=== PATIENT | female | born 1995 | race Caucasian/White ===

== ENCOUNTER → 2020-02-06 | Outpatient (CLI) | payer OTHER ==
[~2020-02-06] MED LIST: Cleocin HCl150 MG PO; Doxycycline Hyc50 MG PO; IBUP800 PO; MULVITMINE PO; PERIDEX15 ML PO; Percocet 5-3251 EACH PO; Zofran Odt4 MG SL
== END | disposition home or self-care (01) ==
LOC: LAB 15:26 → LAB SHORT 15:26
PROVIDERS: Obstetrics & Gynecology
DX: Z01.419 Encounter for gynecological examination (general) (routine) without abnormal findings (principal)
CPT/HCPCS: G0123

== ENCOUNTER → 2020-05-29 | Outpatient (CLI) | payer OTHER ==
[2020-05-31 15:13] LABS: CORONAVIRUS (COVID19) CSH-NRL Negative (Negative)
== END | disposition home or self-care (01) ==
LOC: LAB SHORT 17:51
PROVIDERS: Family Medicine
DX: R52 Pain, unspecified (principal); Z20.828 Contact with and (suspected) exposure to other viral communicable diseases
CPT/HCPCS: U0003

== ENCOUNTER 2020-12-11 19:53 | Inpatient (IN) | payer OTHER ==
[~2020-12-11] VITALS: Ht 157.5 cm; Wt 82.7 kg
--- NOTE | 2020-12-11 20:00 | NUR ---
PT ARRIVES TO [facility] FOR 17 WEEK DEMISE CONFIRMED BY U/S IN OFFICE. PT REQUESTS WE DO ANOTHER HERE BEFORE STARTING ANYTHING. JULIANNA SAENZ CALLED , U/S ORDERED. PARENTS TOOK PICTURE OF SCREEN OF OUTLINE OF BABY YUAN. U/S CONFIRMED LACK OF CARDIC ACTIVITY. PARENTS LEFT FOR A FEW MINUTES TO TALK, THEN LET RN KNOW THEY WERE READY TO PROCEED WITH INDUCTION. PLAN OF CARE DISCUSSED AND AGREED UPON.
[2020-12-11] MEDS ORDERED: LAMO25 PO (21:13)
--- NOTE | 2020-12-11 21:15 | NUR ---
PT REPORTS DIAGNOSIS OF BIPOLAR DISPORDER, CONROLLED WELL WITH MEDICATION FOR THE LAST 18 WEEKS.
[2020-12-11 21:59] LABS: SARS-Cov-2 (COVID-19) PCR, MMC NEGATIVE (NEGATIVE)
--- NOTE | 2020-12-11 22:24 | NUR ---
VE DONE, CERVIX IS SOFT/CLOSED ANTERIOR.CYTOTEC 200MG PER VAGINA.
[2020-12-11 22:33] LABS: BASOPHILS ABSOLUTE AUTO 0.03 K/mm3 (0.00-0.23); BASOPHILS PERCENT AUTO 0 % (0-2); EOSINOPHILS ABSOLUTE AUTO 0.05 K/mm3 (0.00-0.68); EOSINOPHILS PERCENT AUTO 1 % (0-6); Hematocrit 38.6 % (33.0-51.0); Hemoglobin 13.1 g/dL (11.5-16.0); IMMATURE GRAN ABSOLUTE AUTO 0.03 K/mm3 (0.00-0.10); IMMATURE GRAN PERCENT AUTO 0 % (0-1); LYMPHOCYTES ABSOLUTE AUTO 2.24 K/mm3 (0.84-5.20); LYMPHOCYTES PERCENT AUTO 22 % (21-46); MONOCYTES ABSOLUTE AUTO 0.48 K/mm3 (0.16-1.47); MONOCYTES PERCENT AUTO 5 % (4-13); Mean Corpuscular HGB Conc 33.9 g/dL (31.5-36.5); Mean Corpuscular Volume 89 fL (80-100); Mean Platelet Volume 9.9 fL (9.1-12.4); NEUTROPHILS PERCENT AUTO 73 % (41-73); Platelet Count 322 K/mm3 (150-400); RDW Coefficient Variation 12.6 % (11.7-14.2); RDW Standard Deviation 41.1 fL (35.1-46.3); Red Blood Cell Count 4.36 M/mm3 (3.80-5.20); White Blood Cell Count 10.43 K/mm3 (4.00-11.30)
--- NOTE | 2020-12-11 22:41 | NUR ---
REPORT TO LAURITA PATE. PLAN CREMATION FOR BABY BOY "YUAN." PT HAS A 9 YO SON AND A 3 Y.O DAUGHTER. DISCUSSED INCLUDING THEM INTO CONVERSATIONS ABOUT LOSS. WILL WORK ON [employer]. THIS IS THE SONS SECOND LOSS OF A BROTHER. PARENTS ARE APPROPRIATE WITH QUESTIONS. DISCUSSED SPIRITUAL CARE, MIGHT HAVE GRANDMOTHER WHO THEM COME IN AND BLESS YUAN AFTER HE IS BORN. DISCUSSED CUDDLE COT AND THAT THIS IS THEIR JOURNEY AND WE WILL DO WHATEVER WE CAN TO MAKE THE MOST OF THE TIME AND MEMORIES WE CAN FOR THEM.
--- NOTE | 2020-12-12 03:40 | NUR ---
SVE done at 0220. cervix is still closed, soft and anterior. 2nd dose of cytotec 200mcg placed vaginally. Rn encouraged Pt to get some rest if possible and call RN for any changes or concerns.
--- NOTE | 2020-12-12 07:56 | NUR ---
PATIENT STATES INCREASE PAIN TO 8/10, IN TUB NOW DENIES WANTING AN EPIDURAL AY THIS TIME, COMFORT MEASURES OFFERED, BEREAVEMENT SUPPORT OFFERED, PATIENT APPROPRIATE AND ASKING QUESTIONS, C/O CRAMPING, ABD SOFT
--- NOTE | 2020-12-12 08:21 | NUR ---
FEELING PRESSURE, VE DONE BULGY BAG, DR VALLES CALLED FOR UPDATE
--- NOTE | 2020-12-12 08:33 | NUR ---
attempted to call twice to Dr bains cell phone and left message at the office to come for delivery, unable to leave voicemail it was full
--- NOTE | 2020-12-12 11:26 | NUR ---
PATIENT UP VOIDED IN SHOWER FUNDUS FIRM, SCANT BLEEDING, BEREAVEMENT SUPPORT GIVEN
--- NOTE | 2020-12-12 18:41 | NUR ---
ELIZABETH CALLED WILL COME GET BABY TONIGHT OR IN THE AM
== END 2020-12-12 18:30 | disposition home or self-care (01) | DRG 807 ==
LOC: OBS 19:53 → BC 20:11
PROVIDERS: ADMIT Obstetrics & Gynecology
PROC: 10E0XZZ Delivery of Products of Conception, External Approach (ICD-10-PCS; principal; 2020-12-12)
PROC: 3E0P7VZ Introduction of Hormone into Female Reproductive, Via Natural or Artificial Opening (ICD-10-PCS; 2020-12-12)
DX: O02.89 Other abnormal products of conception (principal); Z37.1 Single stillbirth; Z3A.17 17 weeks gestation of pregnancy; Z20.822 Contact with and (suspected) exposure to COVID-19; Z87.891 Personal history of nicotine dependence; Z90.49 Acquired absence of other specified parts of digestive tract; Z79.899 Other long term (current) drug therapy
CPT/HCPCS: 36415; 76815; 85025; 86850; 86900; 86901; A9270; J1885; J3010; U0004

== ENCOUNTER → 2021-03-05 | Outpatient (CLI) | payer OTHER ==
[~2021-03-05] MED LIST changes: +LAMO25 PO
[2021-03-07 22:06] LABS: CHLAMYDIA TRACHOMATIS, NAA Negative (Negative)
== END ==
LOC: LAB SHORT 17:31 → LAB 17:31
PROVIDERS: Obstetrics & Gynecology
DX: Z34.81 Encounter for supervision of other normal pregnancy, first trimester (principal)
CPT/HCPCS: 87491; 87591

== ENCOUNTER 2021-05-20 19:00 | Inpatient (IN) | payer OTHER ==
[~2021-05-20] VITALS: Ht 157.5 cm; Wt 80.0 kg
[2021-05-20 20:34] LABS: BASOPHILS ABSOLUTE AUTO 0.02 K/mm3 (0.00-0.23); BASOPHILS PERCENT AUTO 0 % (0-2); EOSINOPHILS ABSOLUTE AUTO 0.03 K/mm3 (0.00-0.68); EOSINOPHILS PERCENT AUTO 0 % (0-6); Hematocrit 33.7 % (33.0-51.0); Hemoglobin 11.8 g/dL (11.5-16.0); IMMATURE GRAN ABSOLUTE AUTO 0.01 K/mm3 (0.00-0.10); IMMATURE GRAN PERCENT AUTO 0 % (0-1); LYMPHOCYTES ABSOLUTE AUTO 2.11 K/mm3 (0.84-5.20); LYMPHOCYTES PERCENT AUTO 31 % (21-46); MONOCYTES ABSOLUTE AUTO 0.44 K/mm3 (0.16-1.47); MONOCYTES PERCENT AUTO 7 % (4-13); Mean Corpuscular HGB 30.2 pg (26.0-34.0); Mean Corpuscular Volume 86 fL (80-100); Mean Platelet Volume 10.1 fL (9.1-12.4); NEUTROPHILS ABSOLUTE AUTO 4.14 K/mm3 (1.96-9.15); NEUTROPHILS PERCENT AUTO 61 % (41-73); Platelet Count 293 K/mm3 (150-400); RDW Coefficient Variation 12.7 % (11.7-14.2); RDW Standard Deviation 39.5 fL (35.1-46.3); Red Blood Cell Count 3.91 M/mm3 (3.80-5.20); White Blood Cell Count 6.75 K/mm3 (4.00-11.30)
--- NOTE | 2021-05-20 20:56 | NUR ---
NO CURRENT SI. PAST HAS DISTANT HX OF SI. MAY DC PRECAUTIONS FOR THIS ADMISSION PER PROVIDER.
[2021-05-20 21:12] LABS: SARS-Cov-2 (COVID-19) PCR, MMC NEGATIVE (NEGATIVE)
--- NOTE | 2021-05-21 06:20 | NUR ---
DR VALLES NOTIFIED OF QBL TOTAL OF 961. SHE WILL GIVE 600MG CYTOTEC HI AND LR BOLUS ORDERED.
--- NOTE | 2021-05-21 07:20 | NUR ---
DR VALLES NOTIFIED OF TOTAL QBL 1409. ORDER TO TRANSFUSE 1 UNIT RECEIVED AND OR NOTIFIED OF POSSIBLE NEED FOR D&C.
[2021-05-21 07:59] LABS: BASOPHILS ABSOLUTE AUTO 0.04 K/mm3 (0.00-0.23); BASOPHILS PERCENT AUTO 1 % (0-2); EOSINOPHILS ABSOLUTE AUTO 0.03 K/mm3 (0.00-0.68); EOSINOPHILS PERCENT AUTO 0 % (0-6); Hematocrit 30.3 % (33.0-51.0); Hemoglobin 10.4 g/dL (11.5-16.0); IMMATURE GRAN ABSOLUTE AUTO 0.02 K/mm3 (0.00-0.10); IMMATURE GRAN PERCENT AUTO 0 % (0-1); LYMPHOCYTES ABSOLUTE AUTO 2.27 K/mm3 (0.84-5.20); LYMPHOCYTES PERCENT AUTO 27 % (21-46); MONOCYTES ABSOLUTE AUTO 0.52 K/mm3 (0.16-1.47); MONOCYTES PERCENT AUTO 6 % (4-13); Mean Corpuscular HGB 30.1 pg (26.0-34.0); Mean Corpuscular HGB Conc 34.3 g/dL (31.5-36.5); Mean Corpuscular Volume 88 fL (80-100); Mean Platelet Volume 9.9 fL (9.1-12.4); NEUTROPHILS ABSOLUTE AUTO 5.46 K/mm3 (1.96-9.15); NEUTROPHILS PERCENT AUTO 66 % (41-73); Platelet Count 269 K/mm3 (150-400); RDW Coefficient Variation 12.8 % (11.7-14.2); RDW Standard Deviation 40.5 fL (35.1-46.3); Red Blood Cell Count 3.46 M/mm3 (3.80-5.20); White Blood Cell Count 8.34 K/mm3 (4.00-11.30)
--- NOTE | 2021-05-21 09:45 | NUR ---
0801- 617 g pad weighed that included placenta fragments, provider aware and placenta sent to pathology per orders bleeding much more stable after placenta delivered, per dr quintana still some fragments that have not been delivered. qbl at this time as a whole is 2,025. 0855-71 gram pad weighed since last pad. 2,096 qbl at this time 0938- 2,117 qbl as whole at this time. pt states she is feeling much better after 1st unit of blood, still very pale and feels very tired. Dr Quintana aware of Bp 84/57. States its her normal. 2nd bag of LR running at this time, lab here at this time to redraw cbc, based on those results, we may transfuse a 2nd unit.
[2021-05-21 10:05] LABS: BASOPHILS ABSOLUTE AUTO 0.03 K/mm3 (0.00-0.23); BASOPHILS PERCENT AUTO 0 % (0-2); EOSINOPHILS ABSOLUTE AUTO 0.02 K/mm3 (0.00-0.68); EOSINOPHILS PERCENT AUTO 0 % (0-6); Hematocrit 31.3 % (33.0-51.0); Hemoglobin 10.8 g/dL (11.5-16.0); IMMATURE GRAN ABSOLUTE AUTO 0.02 K/mm3 (0.00-0.10); IMMATURE GRAN PERCENT AUTO 0 % (0-1); LYMPHOCYTES ABSOLUTE AUTO 1.76 K/mm3 (0.84-5.20); LYMPHOCYTES PERCENT AUTO 21 % (21-46); MONOCYTES ABSOLUTE AUTO 0.48 K/mm3 (0.16-1.47); MONOCYTES PERCENT AUTO 6 % (4-13); Mean Corpuscular HGB 30.3 pg (26.0-34.0); Mean Corpuscular HGB Conc 34.5 g/dL (31.5-36.5); Mean Corpuscular Volume 88 fL (80-100); Mean Platelet Volume 9.8 fL (9.1-12.4); NEUTROPHILS ABSOLUTE AUTO 6.25 K/mm3 (1.96-9.15); NEUTROPHILS PERCENT AUTO 73 % (41-73); Platelet Count 256 K/mm3 (150-400); RDW Coefficient Variation 13.1 % (11.7-14.2); Red Blood Cell Count 3.56 M/mm3 (3.80-5.20); White Blood Cell Count 8.56 K/mm3 (4.00-11.30)
--- NOTE | 2021-05-21 10:13 | NUR ---
dr bains updated of repeat lab results, orders to not transfuse 2nd unit at this time, she is going to go back in room to see if she can get remaining fragments out of placenta.
--- NOTE | 2021-05-21 12:39 | NUR ---
pt sitting upright in bed with Leonardo. Memory box given, tolerating po fluids and food. states shes feeling better- still appears very pale
[2021-05-21 13:01] LABS: BASOPHILS ABSOLUTE AUTO 0.04 K/mm3 (0.00-0.23); BASOPHILS PERCENT AUTO 1 % (0-2); EOSINOPHILS ABSOLUTE AUTO 0.02 K/mm3 (0.00-0.68); EOSINOPHILS PERCENT AUTO 0 % (0-6); Hemoglobin 10.6 g/dL (11.5-16.0); IMMATURE GRAN ABSOLUTE AUTO 0.02 K/mm3 (0.00-0.10); IMMATURE GRAN PERCENT AUTO 0 % (0-1); LYMPHOCYTES PERCENT AUTO 29 % (21-46); MONOCYTES ABSOLUTE AUTO 0.43 K/mm3 (0.16-1.47); MONOCYTES PERCENT AUTO 6 % (4-13); Mean Corpuscular HGB 30.2 pg (26.0-34.0); Mean Corpuscular HGB Conc 34.2 g/dL (31.5-36.5); Mean Corpuscular Volume 88 fL (80-100); NEUTROPHILS ABSOLUTE AUTO 5.03 K/mm3 (1.96-9.15); NEUTROPHILS PERCENT AUTO 64 % (41-73); Platelet Count 273 K/mm3 (150-400); RDW Standard Deviation 42.1 fL (35.1-46.3); Red Blood Cell Count 3.51 M/mm3 (3.80-5.20); White Blood Cell Count 7.84 K/mm3 (4.00-11.30)
[2021-05-21] MEDS ORDERED: PRENATAL TABLE1 EAC2 (13:50)
[2021-05-21] MEDS ORDERED: IBUP800 PO (13:50)
[2021-05-21] MEDS ORDERED: ACET500 PO (13:50)
--- NOTE | 2021-05-21 15:20 | NUR ---
Patient given emphasized discharge instructions regarding bleeding, light headedness, dizziness, fainting, etc. pt verbalizes understanding and will monitor herself very closely. bleeding check prior to dc after her shower and she voided and there was only a quarter size spot on her large white pad. fundus firm and no clots expressed with massage. VSS.\ Pt declines PPFU here at [facility] at this time, but she is aware that she needs to see Dr bains in 2 weeks for follow up. She is aware to call and be seen sooner if needed or symptoms arise or anything changes including depression and anxiety. Pt also knows when to go to the ED if needed. Memory box given. Pt discharged home with at side. Script for 800 mg Ibuprofen q8h called in to [facility] in [place]. IV dc/d.
== END 2021-05-21 15:10 | disposition home or self-care (01) | DRG 806 ==
LOC: OBS 19:00 → BC 19:00 → OBS 19:16 → BC 19:17
PROVIDERS: ADMIT Obstetrics & Gynecology
PROC: 10E0XZZ Delivery of Products of Conception, External Approach (ICD-10-PCS; principal; 2021-05-21)
PROC: 3E0DXGC Introduction of Other Therapeutic Substance into Mouth and Pharynx, External Approach (ICD-10-PCS; 2021-05-21)
DX: O02.1 Missed abortion (principal); O08.9 Unspecified complication following an ectopic and molar pregnancy; Z37.1 Single stillbirth; Z20.822 Contact with and (suspected) exposure to COVID-19; O73.0 Retained placenta without hemorrhage; Z3A.17 17 weeks gestation of pregnancy; Z87.891 Personal history of nicotine dependence
CPT/HCPCS: 36415; 36430; 85025; 86850; 86900; 86901; 86923; A9270; J0690; J1885; J2405; J3010; J7050; J7120; P9016; U0004

== ENCOUNTER 2023-04-07 01:21 | Observation (INO) | payer OTHER ==
[2023-04-07] VITALS (29 sets, daily range): BP systolic 90–109; BP diastolic 44–72
[~2023-04-07] VITALS: Ht 162.6 cm; Wt 63.5 kg
[~2023-04-07 01:21] MED LIST changes: +ACET500 PO; +CEPH500 PO; +PRENATAL TABLE1 EAC2
[2023-04-07 02:45] LABS: Calcium, Ionized (POC) 1.11 mmol/L (1.10-1.46); Chloride (POC) 105 mmol/L (98-108); Creatinine (POC) 0.2 mg/dL (0.6-1.0); Glucose (ISTAT POC) 164 mg/dL (70-99); Hemoglobin (POC) 8.8 g/dL (12.0-16.0); Potassium (POC) 3.1 mmol/L (3.5-5.5); Sodium (POC) 137 mmol/L (135-148); Total CO2 (POC) 18 mmol/L (21-32)
[2023-04-07 02:51] LABS: BASOPHILS ABSOLUTE AUTO 0.02 K/mm3 (0.00-0.23); BASOPHILS PERCENT AUTO 0 % (0-2); EOSINOPHILS PERCENT AUTO 0 % (0-6); Hematocrit 26.9 % (33.0-51.0); Hemoglobin 9.1 g/dL (11.5-16.0); IMMATURE GRAN ABSOLUTE AUTO 0.04 K/mm3 (0.00-0.10); IMMATURE GRAN PERCENT AUTO 0 % (0-1); LYMPHOCYTES ABSOLUTE AUTO 1.22 K/mm3 (0.84-5.20); LYMPHOCYTES PERCENT AUTO 11 % (21-46); MONOCYTES ABSOLUTE AUTO 0.47 K/mm3 (0.16-1.47); MONOCYTES PERCENT AUTO 4 % (4-13); Mean Corpuscular HGB Conc 33.8 g/dL (31.5-36.5); Mean Corpuscular Volume 89 fL (80-100); Mean Platelet Volume 10.1 fL (9.1-12.4); NEUTROPHILS ABSOLUTE AUTO 8.94 K/mm3 (1.96-9.15); NEUTROPHILS PERCENT AUTO 84 % (41-73); Platelet Count 266 K/mm3 (150-400); RDW Coefficient Variation 12.3 % (11.7-14.2); RDW Standard Deviation 39.7 fL (35.1-46.3); Red Blood Cell Count 3.03 M/mm3 (3.80-5.20); White Blood Cell Count 10.69 K/mm3 (4.00-11.30)
[2023-04-07 03:16] LABS: Magnesium, Blood 1.5 mg/dL (1.6-2.4)
[2023-04-07 03:25] LABS: Alanine Aminotransfer (ALT/SGP 21 U/L (12-78); Albumin, Blood 3.2 g/dL (3.4-5.0); Albumin/Globulin Ratio 1.1 (0.8-1.8); Alk Phos 48 U/L (50-136); Aspartate Aminotrans (AST/SGOT 17 U/L (12-37); Bilirubin, Direct <0.1 mg/dL (0.0-0.3); Bilirubin, Indirect Unable to Calculate mg/dL (0.1-0.7); Bilirubin, Total 0.4 mg/dL (0.1-1.0); Blood Urea Nitrogen 15 mg/dL (8-24); Bun/Creatinine Ratio 33.1 (12.0-20.0); CO2, Blood 20 mmol/L (21-32); Calcium, Blood 8.5 mg/dL (8.5-10.1); Creatinine, Blood 0.45 mg/dL (0.40-1.00); Glomerular Filtration Rate 134 (60-); Glucose, Blood 163 mg/dL (70-99); Total Protein, Blood 6.2 g/dL (6.4-8.2)
[2023-04-07 04:34] LABS: Prothrombin Time Results 10.5 Sec (9.7-11.5)
[2023-04-07 08:46] LABS: Hematocrit 24.8 % (33.0-51.0); Hemoglobin 8.3 g/dL (11.5-16.0)
--- NOTE | 2023-04-07 16:28 | NUR ---
POST OP: REPORT RECEIVED FROM FIRE PATROL. PT TO UNIT AT ABOUT 0930. PT IS ORIENTED AND DROWSY, AWAKENS TO VOICE. VSS, NO BLEED AT INCISION OR SUSANNE PAD PT REPORTS DIZZINESS WHEN MOVED A LITTLE SIDE TO SIDE AND BOOSTED. PT INSTRUCTED FOR BEDREST AT THIS TIME, USED BEDPAN FOR VOID. IV FLUIDS STARTED AND BLOOD TRANSFUSION SLIP SENT. PT AT BEDSIDE. PT INSTRUCTED NOT TO GET OOB WITHOUT FIRST ASKING STAFF.
--- NOTE | 2023-04-07 16:32 | NUR ---
SUMMARY: PT IS POD0. A/O, SLEEPY. ABLE TO MAKE NEEDS KNOWN. SURGICAL SITES ARE WNL. PT HAS RECIEVED 1 UNIT PRBC'S AND 2ND IS TRANSFUSING NOW. TOLERATING WELL. PT IS ABLE TO VOID IN BED TRACY, CONTINUES TO REPORT SOME DIZZINESS WITH SITTING UP AND SMALL MOVEMENTS, BUT REPORTS THAT DIZZINESS IS BETTER. TELE APPLIED AND VERIFIED BY DOM WALLACE. NSR 70'S. CBC ORDERED FOR AFTER 2ND UNIT OF BLOOD TRANSFUSED. DR. BAKER IN ROOM THIS AFTERNOON AND AWARE OF PT BLOOD PRESSURE AND HR, SEE VS. VS TAKEN Q 3O WHILE BLOOD TRANSFUSED. NO ACUTE SAFETY CONCERNS AT THIS TIME.
[2023-04-07 16:38] LABS: Anion Gap 8 mmol/L (6-16); Chloride, Blood 111 mmol/L (98-108); Potassium, Blood 3.2 mmol/L (3.5-5.5); Sodium, Blood 139 mmol/L (136-145)
[2023-04-07 19:50] LABS: BASOPHILS ABSOLUTE AUTO 0.01 K/mm3 (0.00-0.23); BASOPHILS PERCENT AUTO 0 % (0-2); EOSINOPHILS PERCENT AUTO 0 % (0-6); Hematocrit 27.7 % (33.0-51.0); Hemoglobin 9.7 g/dL (11.5-16.0); IMMATURE GRAN ABSOLUTE AUTO 0.01 K/mm3 (0.00-0.10); IMMATURE GRAN PERCENT AUTO 0 % (0-1); LYMPHOCYTES ABSOLUTE AUTO 0.96 K/mm3 (0.84-5.20); LYMPHOCYTES PERCENT AUTO 13 % (21-46); MONOCYTES ABSOLUTE AUTO 0.45 K/mm3 (0.16-1.47); MONOCYTES PERCENT AUTO 6 % (4-13); Mean Corpuscular HGB 30.2 pg (26.0-34.0); Mean Corpuscular Volume 86 fL (80-100); Mean Platelet Volume 9.7 fL (9.1-12.4); NEUTROPHILS ABSOLUTE AUTO 6.23 K/mm3 (1.96-9.15); NEUTROPHILS PERCENT AUTO 81 % (41-73); Platelet Count 240 K/mm3 (150-400); RDW Standard Deviation 40.7 fL (35.1-46.3); Red Blood Cell Count 3.21 M/mm3 (3.80-5.20); White Blood Cell Count 7.66 K/mm3 (4.00-11.30)
--- NOTE | 2023-04-07 21:32 | NUR ---
REASSESSMENT. UPON REASSESSMENT OF NUMBNESS AND TINGLING OF BILATERAL FEET. PT'S PULSES STRONG IN ALL EXTREMITIES, PT ABLE TO IDENTIFY TOUCH FROM NO TOUCH SENSATION. PT ABLE TO TELL FROM SHARP AND DULL SENSATION. PT ABLE TO MOVE EXTREMITIES AND FLEX TOES. REPOSITIONED PT TO FLOAT HIPS AND RELEASE PRESSURE FROM SCIATIC NERVE. PROVIDED EDUCATION TO PT TO MOVE LEGS AND FEET. BREIFLY REMOVING SCUDS TO EVALUATE FOR IMPROVEMENT.
[2023-04-08 00:43] VITALS: BP 100/55
--- NOTE | 2023-04-08 02:05 | NUR ---
ADMISSION TO SURGICAL FLOOR. LATE ENTRY. PT ARRIVED VIA HOSPITAL BED FROM THE ER AT 2342. WEIGHT OBTAINED, VITALS TAKEN. PT ORIENTED TO ROOM AND CALL LIGHT WITHIN REACH. PT VERBALIZES CONCERN ABOUT PERSONAL POSSESIONS THAT SHE BROUGHT WITH HER. SECURITY CONTACTED TO PUT BELONGINGS IN THE SAFE. PT HAS HOME MEDICATIONS THAT ARE IN LOCKED DRAWER AND WILL BE BROUGHT TO PHARMACY.
[2023-04-08 04:47] VITALS: BP 94/58
[2023-04-08 04:48] LABS: BASOPHILS ABSOLUTE AUTO 0.01 K/mm3 (0.00-0.23); BASOPHILS PERCENT AUTO 0 % (0-2); EOSINOPHILS PERCENT AUTO 0 % (0-6); Hematocrit 25.3 % (33.0-51.0); Hemoglobin 8.8 g/dL (11.5-16.0); IMMATURE GRAN ABSOLUTE AUTO 0.02 K/mm3 (0.00-0.10); IMMATURE GRAN PERCENT AUTO 0 % (0-1); LYMPHOCYTES ABSOLUTE AUTO 1.99 K/mm3 (0.84-5.20); LYMPHOCYTES PERCENT AUTO 26 % (21-46); MONOCYTES PERCENT AUTO 8 % (4-13); Mean Corpuscular HGB 30.2 pg (26.0-34.0); Mean Corpuscular HGB Conc 34.8 g/dL (31.5-36.5); Mean Corpuscular Volume 87 fL (80-100); Mean Platelet Volume 9.8 fL (9.1-12.4); NEUTROPHILS PERCENT AUTO 66 % (41-73); Platelet Count 216 K/mm3 (150-400); RDW Coefficient Variation 13.2 % (11.7-14.2); RDW Standard Deviation 41.9 fL (35.1-46.3); Red Blood Cell Count 2.91 M/mm3 (3.80-5.20); White Blood Cell Count 7.72 K/mm3 (4.00-11.30)
[2023-04-08 04:58] VITALS: BP 96/89
[2023-04-08 05:03] VITALS: BP 94/64
--- NOTE | 2023-04-08 06:47 | NUR ---
UPDATE TO DR BAKER.NOTIFIED PT ALERT BP REMAINS SLIGHTLY SOFT 98,HEART RATE 67-80.WITH NO CHANGES TO TELE. MAPS 69-74.VOID 700 APPROX 1800,VOID 550 @0447. PT REPORTS DIZZYNESS MOSTLY RESOLVED. HAS BEEN AMBULATORY FOR BRP ASSIST OF .PT MED X 1 FOR NAUSEA,IV FLUIDS SL.VAG SPOTTING ONLY.H/H @1933 9.7/27.7,H/H @ 8.8/25.3.DR BAKER VERB TO MAKE SURE PT GETS BREAKFAST AND HOLD LOVENOX THIS AM.
[2023-04-08 07:16] VITALS: BP 85/53
--- NOTE | 2023-04-08 07:47 | NUR ---
SHIFT SUMMARY NOC. PT IS POD 1 FOR LAP DIAGNOSTIC AFTER OVARIAN CYST. PT ON TELEMETRY AND HAS BEEN NSR. PT AMBULATING TO THE BATHROOM VOIDING URINE. PT A/O X4. 3 LAP SITES ARE OPEN TO AIR WITHOUT DRAINAGE. PT MEDICATED FOR PAIN AND NAUSEA WITH SOME RELIEF OF SYMPTOMS. PT HAD SOFT B/P, SYSTOLIC BELOW 100. MAP BETWEEN 69-74. PT REPORTS BASELINE IS 110 SYSTOLIC. CHARGE NURSE ARMANDO Ponce RN CONTACTED DR. BAKER REGARDING BLOOD PRESSURE AND QUESTIONED IF LOVENOX IS TO BE HELD. LOVENOX IS TO BE HELD TODAY AND NOTIFIED ONCOMING NURSE IN REPORT.
[2023-04-08 11:57] VITALS: BP 91/58
--- NOTE | 2023-04-08 14:27 | NUR ---
DISCHARGE SUMMARY PT A&OX4, VSS/RA, SAMUEL PO, VOIDING, AMB INDEPENDENTLY, PAIN MANAGED, IVs DC'D. POD1, LAP SITES WOUND GLUE CDI. DC INS PROVIDED. PT AND REP UNDERSTANDING THOSE INSTRUCTIONS. LEFT FLOOR VIA WC WITH CORPORATE OFFICER TO GO HOME WITH WITH ALL PERSONAL POSSESSIONS INCLUDING DC PACKET; PT STATED MEDS ARE READY FOR PICKUP AT [facility].
== END 2023-04-08 14:15 | disposition home or self-care (01) ==
LOC: ER 01:21 → SURS 01:22
PROVIDERS: Anesthesiology; Obstetrics & Gynecology; Student in an Organized Health Care Education/Training Program; ADMIT Obstetrics & Gynecology
DX: N83.201 Unspecified ovarian cyst, right side (principal); K66.1 Hemoperitoneum; K65.0 Generalized (acute) peritonitis; N70.91 Salpingitis, unspecified; D62 Acute posthemorrhagic anemia; Z87.891 Personal history of nicotine dependence
CPT/HCPCS: 36415; 36430; 74177; 80047; 80048; 80076; 83690; 83735; 84703; 85014; 85018; 85025; 85610; 85730; 86850; 86900; 86901; 86923; 88305; 94762; 96365-59; 96375-59; 96376; 99285-25; A9270; G0378; J1100; J1790; J1885; J2371; J2405; J2704; J3010; J3475; J7030; J7050; J7120; P9016; Q9967

== ENCOUNTER 2023-04-20 10:16 | Emergency (ER) | payer OTHER ==
[~2023-04-20] VITALS: Ht 157.5 cm; Wt 77.1 kg
[2023-04-20 10:54] LABS: BASOPHILS ABSOLUTE AUTO 0.06 K/mm3 (0.00-0.23); BASOPHILS PERCENT AUTO 1 % (0-2); EOSINOPHILS PERCENT AUTO 2 % (0-6); Hematocrit 36.7 % (33.0-51.0); Hemoglobin 12.2 g/dL (11.5-16.0); IMMATURE GRAN ABSOLUTE AUTO 0.01 K/mm3 (0.00-0.10); IMMATURE GRAN PERCENT AUTO 0 % (0-1); LYMPHOCYTES PERCENT AUTO 47 % (21-46); MONOCYTES ABSOLUTE AUTO 0.41 K/mm3 (0.16-1.47); MONOCYTES PERCENT AUTO 8 % (4-13); Mean Corpuscular HGB 29.9 pg (26.0-34.0); Mean Corpuscular HGB Conc 33.2 g/dL (31.5-36.5); Mean Corpuscular Volume 90 fL (80-100); Mean Platelet Volume 9.9 fL (9.1-12.4); NEUTROPHILS ABSOLUTE AUTO 2.16 K/mm3 (1.96-9.15); NEUTROPHILS PERCENT AUTO 42 % (41-73); Platelet Count 387 K/mm3 (150-400); RDW Coefficient Variation 12.3 % (11.7-14.2); RDW Standard Deviation 40.4 fL (35.1-46.3); Red Blood Cell Count 4.08 M/mm3 (3.80-5.20); White Blood Cell Count 5.14 K/mm3 (4.00-11.30)
[2023-04-20 11:14] LABS: Albumin, Blood 3.9 g/dL (3.4-5.0); Albumin/Globulin Ratio 1.1 (0.8-1.8); Bilirubin, Total 0.5 mg/dL (0.1-1.0); Bun/Creatinine Ratio 29.6 (12.0-20.0); Calcium, Blood 9.3 mg/dL (8.5-10.1); Creatinine, Blood 0.51 mg/dL (0.40-1.00); Globulin, Blood 3.6 g/dL (2.2-4.0); Potassium, Blood 3.8 mmol/L (3.5-5.5); Total Protein, Blood 7.5 g/dL (6.4-8.2)
[2023-04-20 15:20] VITALS: BP 107/69
== END 2023-04-20 15:23 | disposition home or self-care (01) ==
LOC: ER 10:16
PROVIDERS: Physician Assistant
DX: R55 Syncope and collapse (principal); R00.2 Palpitations; F17.290 Nicotine dependence, other tobacco product, uncomplicated
CPT/HCPCS: 74177; 80053; 84703; 85025; 93242; 96361; 96374; 96375; 99285-25; J0612; J1885; J2405; J7030; Q9967

== ENCOUNTER 2024-01-29 21:09 | Emergency (ER) | payer OTHER ==
[~2024-01-29] VITALS: Ht 160 cm; Wt 81.7 kg
[2024-01-29 22:25] LABS: Source, Urine Clean Catch
[2024-01-29 22:29] LABS: BASOPHILS ABSOLUTE AUTO 0.03 K/mm3 (0.00-0.23); BASOPHILS PERCENT AUTO 1 % (0-2); EOSINOPHILS PERCENT AUTO 2 % (0-6); Hematocrit 38.8 % (33.0-51.0); Hemoglobin 13.6 g/dL (11.5-16.0); IMMATURE GRAN ABSOLUTE AUTO 0.01 K/mm3 (0.00-0.10); IMMATURE GRAN PERCENT AUTO 0 % (0-1); LYMPHOCYTES ABSOLUTE AUTO 2.21 K/mm3 (0.84-5.20); LYMPHOCYTES PERCENT AUTO 37 % (21-46); MONOCYTES ABSOLUTE AUTO 0.67 K/mm3 (0.16-1.47); MONOCYTES PERCENT AUTO 11 % (4-13); Mean Corpuscular HGB 30.3 pg (26.0-34.0); Mean Corpuscular HGB Conc 35.1 g/dL (31.5-36.5); Mean Corpuscular Volume 86 fL (80-100); Mean Platelet Volume 9.7 fL (9.1-12.4); NEUTROPHILS ABSOLUTE AUTO 2.94 K/mm3 (1.96-9.15); NEUTROPHILS PERCENT AUTO 49 % (41-73); Platelet Count 311 K/mm3 (150-400); RDW Coefficient Variation 11.9 % (11.7-14.2); RDW Standard Deviation 37.7 fL (35.1-46.3); Red Blood Cell Count 4.49 M/mm3 (3.80-5.20); White Blood Cell Count 5.96 K/mm3 (4.00-11.30)
[2024-01-29 22:31] LABS: Bilirubin, Urine Neg (Neg); Blood, Urine Neg (Neg); Glucose Qualitative, Urine Neg (Neg); Ketones, Urine Neg (Neg); Leukocyte Esterase, Urine Neg (Neg); Nitrite, Urine Neg (Neg); Protein, Urine Neg (Neg); Urobilinogen, Urine NORM (Normal)
[2024-01-29 22:32] VITALS: BP 137/91
[2024-01-29 22:38] LABS: Appearance, Urine Clear (Clear); Color, Urine Yellow (P-Yellow)
[2024-01-29 22:40] LABS: Albumin, Blood 3.9 g/dL (3.4-5.0); Albumin/Globulin Ratio 1.1 (0.8-1.8); Bilirubin, Total 0.4 mg/dL (0.1-1.0); Bun/Creatinine Ratio 21.1 (12.0-20.0); Calcium, Blood 8.9 mg/dL (8.5-10.1); Creatinine, Blood 0.47 mg/dL (0.40-1.00); Globulin, Blood 3.6 g/dL (2.2-4.0); Potassium, Blood 3.6 mmol/L (3.5-5.5); Total Protein, Blood 7.5 g/dL (6.4-8.2)
== END 2024-01-30 01:35 | disposition left against medical advice (07) ==
LOC: ER 21:09
PROVIDERS: Student in an Organized Health Care Education/Training Program
DX: O99.891 Other specified diseases and conditions complicating pregnancy (principal); R10.9 Unspecified abdominal pain; Z3A.01 Less than 8 weeks gestation of pregnancy; Z53.29 Procedure and treatment not carried out because of patient's decision for other reasons
CPT/HCPCS: 76801; 76817; 80053; 81003; 83690; 84702; 85025; 86900; 86901; 99282-25

== ENCOUNTER 2024-01-31 10:41 | Emergency (ER) | payer OTHER ==
[~2024-01-31] VITALS: Ht 157.5 cm; Wt 81.7 kg
[2024-01-31 10:44] VITALS: BP 147/90
== END 2024-01-31 11:40 | disposition home or self-care (01) ==
LOC: ER 10:41
DX: O99.891 Other specified diseases and conditions complicating pregnancy (principal); R10.9 Unspecified abdominal pain; O99.331 Smoking (tobacco) complicating pregnancy, first trimester; Z53.21 Procedure and treatment not carried out due to patient leaving prior to being seen by health care provider
CPT/HCPCS: 84702; 99282

== ENCOUNTER 2024-03-08 19:33 | Emergency (ER) | payer OTHER ==
[~2024-03-08] VITALS: Ht 160 cm; Wt 79.4 kg
[2024-03-08 19:47] VITALS: BP 134/82
[2024-03-08 20:11] LABS: BASOPHILS ABSOLUTE AUTO 0.04 K/mm3 (0.00-0.23); BASOPHILS PERCENT AUTO 1 % (0-2); EOSINOPHILS ABSOLUTE AUTO 0.05 K/mm3 (0.00-0.68); EOSINOPHILS PERCENT AUTO 1 % (0-6); Hematocrit 35.4 % (33.0-51.0); Hemoglobin 12.3 g/dL (11.5-16.0); IMMATURE GRAN ABSOLUTE AUTO 0.02 K/mm3 (0.00-0.10); IMMATURE GRAN PERCENT AUTO 0 % (0-1); LYMPHOCYTES ABSOLUTE AUTO 2.71 K/mm3 (0.84-5.20); LYMPHOCYTES PERCENT AUTO 33 % (21-46); MONOCYTES ABSOLUTE AUTO 0.57 K/mm3 (0.16-1.47); MONOCYTES PERCENT AUTO 7 % (4-13); Mean Corpuscular HGB 30.4 pg (26.0-34.0); Mean Corpuscular HGB Conc 34.7 g/dL (31.5-36.5); Mean Corpuscular Volume 88 fL (80-100); Mean Platelet Volume 9.4 fL (9.1-12.4); NEUTROPHILS ABSOLUTE AUTO 4.84 K/mm3 (1.96-9.15); NEUTROPHILS PERCENT AUTO 59 % (41-73); Platelet Count 290 K/mm3 (150-400); RDW Coefficient Variation 12.1 % (11.7-14.2); RDW Standard Deviation 38.7 fL (35.1-46.3); Red Blood Cell Count 4.04 M/mm3 (3.80-5.20); White Blood Cell Count 8.23 K/mm3 (4.00-11.30)
[2024-03-08 20:22] LABS: Source, Urine Clean Catch
[2024-03-08 20:32] LABS: Appearance, Urine Clear (Clear); Bilirubin, Urine Neg (Neg); Blood, Urine Neg (Neg); Glucose Qualitative, Urine Neg (Neg); Ketones, Urine Neg (Neg); Leukocyte Esterase, Urine Neg (Neg); Nitrite, Urine Neg (Neg); Protein, Urine Neg (Neg); Urobilinogen, Urine NORM (Normal)
[2024-03-08 20:45] LABS: Albumin, Blood 3.7 g/dL (3.4-5.0); Albumin/Globulin Ratio 1.1 (0.8-1.8); Bilirubin, Total 0.4 mg/dL (0.1-1.0); Bun/Creatinine Ratio 16.1 (12.0-20.0); Calcium, Blood 9.1 mg/dL (8.5-10.1); Creatinine, Blood 0.44 mg/dL (0.40-1.00); Globulin, Blood 3.5 g/dL (2.2-4.0); Potassium, Blood 3.9 mmol/L (3.5-5.5); Total Protein, Blood 7.2 g/dL (6.4-8.2)
[2024-03-08 20:50] LABS: Color, Urine Pale Yellow (P-Yellow)
== END 2024-03-08 23:10 | disposition home or self-care (01) ==
LOC: ER 19:33
PROVIDERS: Emergency Medicine
DX: O20.8 Other hemorrhage in early pregnancy (principal); O99.331 Smoking (tobacco) complicating pregnancy, first trimester; Z3A.09 9 weeks gestation of pregnancy
CPT/HCPCS: 76801; 80053; 81003; 84702; 85025; 86900; 86901; 99284-25

== ENCOUNTER → 2024-03-29 | Outpatient (CLI) | payer OTHER ==
[2024-03-29 17:03] LABS: BASOPHILS ABSOLUTE AUTO 0.03 K/mm3 (0.00-0.23); BASOPHILS PERCENT AUTO 0 % (0-2); EOSINOPHILS ABSOLUTE AUTO 0.05 K/mm3 (0.00-0.68); EOSINOPHILS PERCENT AUTO 1 % (0-6); Hematocrit 36.6 % (33.0-51.0); Hemoglobin 12.8 g/dL (11.5-16.0); IMMATURE GRAN ABSOLUTE AUTO 0.02 K/mm3 (0.00-0.10); IMMATURE GRAN PERCENT AUTO 0 % (0-1); LYMPHOCYTES ABSOLUTE AUTO 2.38 K/mm3 (0.84-5.20); LYMPHOCYTES PERCENT AUTO 30 % (21-46); MONOCYTES ABSOLUTE AUTO 0.55 K/mm3 (0.16-1.47); MONOCYTES PERCENT AUTO 7 % (4-13); Mean Corpuscular HGB 30.7 pg (26.0-34.0); Mean Corpuscular Volume 88 fL (80-100); Mean Platelet Volume 9.4 fL (9.1-12.4); NEUTROPHILS ABSOLUTE AUTO 4.92 K/mm3 (1.96-9.15); NEUTROPHILS PERCENT AUTO 62 % (41-73); Platelet Count 304 K/mm3 (150-400); RDW Coefficient Variation 12.4 % (11.7-14.2); RDW Standard Deviation 39.7 fL (35.1-46.3); Red Blood Cell Count 4.17 M/mm3 (3.80-5.20); White Blood Cell Count 7.95 K/mm3 (4.00-11.30)
== END | disposition home or self-care (01) ==
LOC: LAB 16:59 → LAB SHORT 16:59
PROVIDERS: Physician Assistant Surgical
DX: O26.90 Pregnancy related conditions, unspecified, unspecified trimester (principal)
CPT/HCPCS: 84702; 85025

== ENCOUNTER → 2024-06-05 | Outpatient (CLI) | payer OTHER ==
[2024-06-05 15:52] LABS: Source, Urine Clean Catch
[2024-06-05 17:52] LABS: Appearance, Urine Clear (Clear); Bilirubin, Urine Neg (Neg); Blood, Urine Neg (Neg); Color, Urine Yellow (P-Yellow); Glucose Qualitative, Urine Neg (Neg); Ketones, Urine 1+ (Neg); Leukocyte Esterase, Urine Neg (Neg); Nitrite, Urine Neg (Neg); Protein, Urine 1+ (Neg); Urobilinogen, Urine NORM (Normal); pH, Urine 6.5 (5.0-8.0)
[2024-06-05 18:29] LABS: Candida glabrata-krusei, PCR NOT DETECTED (NOT DETECT)
[2024-06-05 18:30] LABS: Bacterial Vaginosis PCR Positive (NEGATIVE); Candida Group, PCR DETECTED (NOT DETECT)
== END ==
LOC: LAB SHORT 15:49 → LAB 15:49
PROVIDERS: Obstetrics & Gynecology
DX: N76.0 Acute vaginitis (principal); R35.0 Frequency of micturition
CPT/HCPCS: 87481; 87661; 87801

== ENCOUNTER → 2024-07-17 | Outpatient (CLI) | payer OTHER ==
[2024-07-17 18:49] LABS: Bacterial Vaginosis PCR Negative (NEGATIVE); Candida glabrata-krusei, PCR NOT DETECTED (NOT DETECT)
[2024-07-18 00:04] LABS: Candida Group, PCR DETECTED (NOT DETECT)
== END ==
LOC: LAB SHORT 15:50 → LAB 15:50
PROVIDERS: Obstetrics & Gynecology
DX: N76.0 Acute vaginitis (principal)
CPT/HCPCS: 87481; 87661; 87801

== ENCOUNTER → 2024-08-22 | Outpatient (CLI) | payer OTHER ==
[2024-08-25 11:32] LABS: APTIMA MEDIA TYPE Urine; C. TRACHOMATIS BY TMA Negative (Negative); N. GONORRHOEAE BY TMA Negative (Negative); SPECIMEN SOURCE Urine
== END | disposition home or self-care (01) ==
LOC: LAB 16:13 → LAB SHORT 16:13
PROVIDERS: Obstetrics & Gynecology
DX: Z11.3 Encounter for screening for infections with a predominantly sexual mode of transmission (principal)
CPT/HCPCS: 87491; 87591

== ENCOUNTER → 2024-09-04 | Outpatient (CLI) | payer OTHER ==
[2024-09-04 19:48] LABS: Bacterial Vaginosis PCR Negative (NEGATIVE); Candida glabrata-krusei, PCR NOT DETECTED (NOT DETECT)
[2024-09-04 20:12] LABS: Candida Group, PCR DETECTED (NOT DETECT)
== END ==
LOC: LAB 16:18 → LAB SHORT 16:18
PROVIDERS: Family Medicine
DX: N89.8 Other specified noninflammatory disorders of vagina (principal)
CPT/HCPCS: 81515

== ENCOUNTER → 2024-09-26 | Outpatient (CLI) | payer OTHER ==
[2024-09-27 11:03] LABS: Bacterial Vaginosis PCR Negative (NEGATIVE); Candida Group, PCR DETECTED (NOT DETECT); Candida glabrata-krusei, PCR NOT DETECTED (NOT DETECT)
== END ==
LOC: LAB 18:14 → LAB SHORT 18:14
PROVIDERS: Obstetrics & Gynecology
DX: O09.93 Supervision of high risk pregnancy, unspecified, third trimester (principal); O23.593 Infection of other part of genital tract in pregnancy, third trimester
CPT/HCPCS: 81515; 87081; 87150

== ENCOUNTER 2024-10-05 18:52 | Inpatient (IN) | payer OTHER ==
[~2024-10-05] VITALS: Ht 160 cm; Wt 85.9 kg
[~2024-10-05 18:52] MED LIST changes: +Misoprostol 200 MCG Tab PO ONE
[2024-10-05 19:15] VITALS: BP 122/70
[2024-10-05] MEDS ORDERED: Lactated Ringer's 1,000 ML IV PRN ×3 (19:40→19:45)
[2024-10-05] MEDS ORDERED: Misoprostol 200 MCG Tab BC PRN (19:40)
[2024-10-05] MEDS ORDERED: Misoprostol 200 MCG Tab PR PRN (19:40)
[2024-10-05] MEDS ORDERED: Carboprost Tromethamine 250 MCG/ML 1ML Amp IM PRN (19:40)
[2024-10-05] MEDS ORDERED: Oxytocin 10 Unit / ML Vial IM PRN (19:40)
[2024-10-05] MEDS ORDERED: Acetaminophen 500 MG Tab PO PRN (19:40)
[2024-10-05] MEDS ORDERED: Tranexamic Acid 1,000 MG in NS 100 ML IV SCH (19:40)
[2024-10-05] MEDS ORDERED: OXYTOCIN/RINGER'S LACTATE 500 ML IV PRN (19:40)
[2024-10-05] MEDS ORDERED: ePHEDrine Sulfate 50 MG/ML 1ML Injection XX PRN (19:40)
[2024-10-05] MEDS ORDERED: FentaNYL 2mcg/ml-Bup 0.1% Epd 250 ML EPI PRN (19:40)
[2024-10-05] MEDS ORDERED: Methylergonovine Maleate 0.2MG / ML 1ML Amp IM PRN (19:40)
[2024-10-05] MEDS ORDERED: Ondansetron HCl 2 MG / ML 2ML Vial IV PRN (19:40)
[2024-10-05] MEDS ORDERED: OXYTOCIN/RINGER'S LACTATE 500 ML IV SCH (19:45)
[2024-10-05] MEDS ORDERED: Calcium Carbonate 500 MG Tab Chew PO PRN (19:45)
[2024-10-05] MEDS ORDERED: Zolpidem Tartrate 10 MG Tab PO PRN (19:50)
[2024-10-05 20:24] LABS: BASOPHILS ABSOLUTE AUTO 0.01 K/mm3 (0.00-0.23); BASOPHILS PERCENT AUTO 0 % (0-2); EOSINOPHILS ABSOLUTE AUTO 0.02 K/mm3 (0.00-0.68); EOSINOPHILS PERCENT AUTO 0 % (0-6); Hematocrit 33.2 % (33.0-51.0); IMMATURE GRAN ABSOLUTE AUTO 0.02 K/mm3 (0.00-0.10); IMMATURE GRAN PERCENT AUTO 0 % (0-1); LYMPHOCYTES ABSOLUTE AUTO 1.29 K/mm3 (0.84-5.20); LYMPHOCYTES PERCENT AUTO 19 % (21-46); MONOCYTES ABSOLUTE AUTO 0.42 K/mm3 (0.16-1.47); MONOCYTES PERCENT AUTO 6 % (4-13); Mean Corpuscular HGB 32.4 pg (26.0-34.0); Mean Corpuscular HGB Conc 36.1 g/dL (31.5-36.5); Mean Corpuscular Volume 90 fL (80-100); Mean Platelet Volume 10.9 fL (9.1-12.4); NEUTROPHILS ABSOLUTE AUTO 5.16 K/mm3 (1.96-9.15); NEUTROPHILS PERCENT AUTO 75 % (41-73); Platelet Count 194 K/mm3 (150-400); RDW Coefficient Variation 13.2 % (11.7-14.2); White Blood Cell Count 6.92 K/mm3 (4.00-11.30)
[2024-10-05 22:10] VITALS: BP 92/55
[2024-10-05 23:21] VITALS: BP 98/53
[2024-10-06] VITALS (41 sets, daily range): BP systolic 90–120; BP diastolic 50–74
[2024-10-06] MEDS ORDERED: FentaNYL Citrate 50 MCG/ML 2 ML Injection IV PRN (07:25)
[2024-10-06] MEDS ORDERED: NS 1,000 ML IV ONE (12:54)
[2024-10-06] MEDS ORDERED: Tranexamic Acid 0 ML IV ONE (13:56)
[2024-10-06] MEDS ORDERED: CeFAZolin Sodium 2,000 MG in NS 100 ML IV ONE (14:25)
[2024-10-06] MEDS ORDERED: Methylergonovine Maleate 0.2MG / ML 1ML Amp IM PRN (15:05)
[2024-10-06] MEDS ORDERED: Misoprostol 200 MCG Tab PR PRN (15:05)
[2024-10-06] MEDS ORDERED: Lactated Ringer's 1,000 ML IV SCH (15:05)
[2024-10-06] MEDS ORDERED: Ketorolac Tromethamine 30mg Vial IV PRN (15:10)
[2024-10-06] MEDS ORDERED: Benzocaine Topical Anesthetic Spray 60GM TOP PRN (15:10)
[2024-10-06] MEDS ORDERED: FLU VACC TS2024-25(6MOS UP)/PF 45 MCG/0.5 ML SYRINGE IM ONE (15:10)
[2024-10-06] MEDS ORDERED: Acetaminophen 325 MG TABLET PO PRN (15:10)
[2024-10-06] MEDS ORDERED: OXYTOCIN/RINGER'S LACTATE 500 ML IV SCH (15:10)
[2024-10-06] MEDS ORDERED: Witch Hazel/Glycerin PADS TOP PRN (15:10)
[2024-10-06] MEDS ORDERED: Lanolin Cream TOP PRN (15:10)
[2024-10-06] MEDS ORDERED: Ibuprofen 400 MG Tab PO PRN (15:15)
[2024-10-06] MEDS ORDERED: NS 1,000 ML IV SCH (17:55)
[2024-10-07 00:14] VITALS: BP 105/56
[2024-10-07 03:56] VITALS: BP 104/56
[2024-10-07 08:13] VITALS: BP 108/65
[2024-10-07] MEDS ORDERED: Prenatal Vit/FE Fumarate/FA 1 Tab PO SCH (09:00)
--- NOTE | 2024-10-07 11:03 | NUR ---
RN CALLED AND SPOKE TO THOMPSON WITH CARE MANAGEMENT. SHE WAS NOTIFIED OF EPDS SCORE OF 10 AND THAT PT SHOULD D/C HOME THIS AFTERNOON. SHE PLANS TO COME SEE PT SHORTLY.
[2024-10-07 12:09] VITALS: BP 93/52
--- NOTE | 2024-10-07 15:48 | NUR ---
DISCHARGE INSTRUCTIONS DISCUSSED. PT AND VERBALIZED UNDERSTANDING. PT AMBULATED OUT OF ROOM WITHOUT COMPLICATION.
== END 2024-10-07 15:40 | disposition home or self-care (01) | DRG 797 ==
LOC: OBS 18:52 → BC 18:53 → OBS 19:02 → BC 19:03
PROVIDERS: ADMIT Obstetrics & Gynecology
PROC: 10E0XZZ Delivery of Products of Conception, External Approach (ICD-10-PCS; principal; 2024-10-06)
PROC: 10D17ZZ Extraction of Products of Conception, Retained, Via Natural or Artificial Opening (ICD-10-PCS; 2024-10-06)
PROC: 10907ZC Drainage of Amniotic Fluid, Therapeutic from Products of Conception, Via Natural or Artificial Opening (ICD-10-PCS; 2024-10-06)
PROC: 10H07YZ Insertion of Other Device into Products of Conception, Via Natural or Artificial Opening (ICD-10-PCS; 2024-10-06)
PROC: 3E033VJ Introduction of Other Hormone into Peripheral Vein, Percutaneous Approach (ICD-10-PCS; 2024-10-06)
PROC: 4A1H7CZ Monitoring of Products of Conception, Cardiac Rate, Via Natural or Artificial Opening (ICD-10-PCS; 2024-10-06)
PROC: 10H073Z Insertion of Monitoring Electrode into Products of Conception, Via Natural or Artificial Opening (ICD-10-PCS; 2024-10-06)
DX: O24.420 Gestational diabetes mellitus in childbirth, diet controlled (principal); O72.2 Delayed and secondary postpartum hemorrhage; Z37.0 Single live birth; O34.211 Maternal care for low transverse scar from previous cesarean delivery; Z3A.39 39 weeks gestation of pregnancy; O99.344 Other mental disorders complicating childbirth; F31.9 Bipolar disorder, unspecified; Z87.891 Personal history of nicotine dependence; Z91.040 Latex allergy status; O76 Abnormality in fetal heart rate and rhythm complicating labor and delivery
CPT/HCPCS: 36415; 36416; 51702; 59070; 82947; 85025; 86850; 86900; 86901; 86923; A9270; J0690; J2405; J2590; J3010; J7030; J7120

== ENCOUNTER 2024-11-24 08:10 | Day surgery (SDC) | payer OTHER ==
[~2024-11-24] VITALS: Ht 160 cm; Wt 169.6 kg
[~2024-11-24 08:10] MED LIST changes: +Bupivacaine 0.5% W/EPI 1:200000 SDV 30 ML Vial ONE; +Lactated Ringer's 1,000 ML IV ONE; -Misoprostol 200 MCG Tab PO ONE
[2024-11-24] MEDS ORDERED: Lactated Ringer's 1,000 ML IV ONE ×3 (08:42→13:43)
[2024-11-24] MEDS ORDERED: Midazolam HCl 1MG / ML 2ML Vial ONE (09:15)
[2024-11-24] MEDS ORDERED: propofoL 20 ML IV ONE (09:15)
[2024-11-24] MEDS ORDERED: Sugammadex Sodium 200 MG/2ML SDV (100 MG/ML) ONE (09:15)
[2024-11-24] MEDS ORDERED: FentaNYL Citrate 50 MCG/ML 2 ML Injection ONE (09:15)
[2024-11-24] MEDS ORDERED: Dexamethasone Sod Phos 10 MG/ML 1ML VIAL ONE (09:22)
[2024-11-24] MEDS ORDERED: Rocuronium Bromide 10 MG/ML 5ML Injection IV ONE (09:22)
[2024-11-24] MEDS ORDERED: Ondansetron HCl 2 MG / ML 2ML Vial ONE ×2 (09:22→12:43)
[2024-11-24] MEDS ORDERED: ePHEDrine Sulfate 50 MG/ML 1ML Injection ONE (10:09)
[2024-11-24] MEDS ORDERED: HYDROmorphone HCl/Pf 1MG SYR ONE (10:33)
[2024-11-24] MEDS ORDERED: Ketorolac Tromethamine 30mg Vial ONE (10:39)
--- NOTE | 2024-11-24 11:01 | NUR ---
11/24/24 1101 ANGÉLICA HANCOCK ECG SOME DIFFERENCE DURING TIME IN PACU. CONSULTED WITH DR CHANDLER AND HE STATES THAT THERE IS A P-WAVE. LONG THERE IS A P-WAVE, IT FINE.
--- NOTE | 2024-11-24 11:35 | NUR ---
11/24/24 1135 ANGÉLICA HANCOCK PT ADMITS NAUSEA HAS RESOLVED. PT CONTINES TO BE VERY SLEEPY. O2 SAT ON 2L IS 99% O2 WITH N/C
[2024-11-24] MEDS ORDERED: OxyCODONE 5 mg/Acetamin 325 mg TABLET ONE (12:33)
[2024-11-24 13:42] VITALS: BP 106/67
== END 2024-11-24 13:53 | disposition home or self-care (01) ==
LOC: ORSCSDS 08:10
PROVIDERS: Obstetrics & Gynecology
PROC: 0UT74ZZ Resection of Bilateral Fallopian Tubes, Percutaneous Endoscopic Approach (ICD-10-PCS; principal; 2024-11-24 09:30)
DX: Z30.2 Encounter for sterilization (principal); K21.9 Gastro-esophageal reflux disease without esophagitis; E28.2 Polycystic ovarian syndrome; F31.9 Bipolar disorder, unspecified; E66.9 Obesity, unspecified; Z68.31 Body mass index [BMI] 31.0-31.9, adult
CPT/HCPCS: 88302; A9270; J1100; J1171; J1885; J2250; J2405; J2704; J3010; J7120